=== PATIENT | female | born 1995 | race Caucasian/White ===

== ENCOUNTER 2017-01-14 20:03 | Emergency (ER) | payer OTHER ==
[2017-01-14 20:11] VITALS: BP 134/75; PULSE 72; RESP 18; TEMP 98.9
[2017-01-14] MEDS ORDERED: BUPIVACAINE (PF) 0.5% 30 ML VIAL SQ STA (20:20)
--- NOTE | 2017-01-14 20:25 | ED ---
Lower Extremity Injury HPI - General Chief Complaint: Extremity Injury, Lower Stated Complaint: Toe nail ripped off Time Seen by Provider: 01/14/17 20:16 Source: patient, RN notes reviewed Mode of arrival: ambulatory Limitations: no limitations - History of Present Illness Initial Comments: This is a pleasant 21-year-old female who presents emergency department after catching her left great toenail on the edge of a truck and nearly tearing it off. She states it just occurred a few minutes prior to arrival. Tetanus is up -to-date. Patient is having pain to the area which is exacerbated by any touching or movement. Patient denies any other injuries. Patient denies any history of immunosuppression. Patient does state that she has had a history of left toe surgery. - Related Data Previous Rx's Medication Instructions Recorded Cephalexin [Keflex] 500 mg PO Q6HR #28 cap 01/14/17 Naproxen [Naprosyn] 500 mg PO Q12HR PRN #24 tab 01/14/17 traMADol HCl [Ultram] 50 mg PO Q4H PRN #16 tab 01/14/17 Allergies Allergy/AdvReac Type Severity Reaction Status Date / Time No Known Allergies Allergy Verified 01/14/17 20:10 Review of Systems ROS Statement: Those systems with pertinent positive or pertinent negative responses have been documented in the HPI. ROS Other: All systems not noted in ROS Statement are negative. Past Medical History Past Medical History: No Reported History History of Any Multi-Drug Resistant Organisms: None Reported Past Surgical History: Tonsillectomy Additional Past Surgical History / Comment(s): Surgery involving left great toe by history Past Psychological History: No Psychological Hx Reported Smoking Status: Never smoker Past Alcohol Use History: None Reported Past Drug Use History: None Reported General Exam - General Exam Comments Initial Comments: This is a 21-year-old female presents emergency department no acute distress Limitations: no limitations General appearance: alert, in no apparent distress Head exam: Present: atraumatic, normocephalic, normal inspection Eye exam: Present: normal appearance, EOMI Neck exam: Present: normal inspection Respiratory exam: Present: normal lung sounds bilaterally. Absent: respiratory distress, wheezes, rales, rhonchi, stridor Cardiovascular Exam: Present: regular rate, normal rhythm, normal heart sounds. Absent: systolic murmur, diastolic murmur, rubs, gallop, clicks Extremities exam: Present: normal inspection, tenderness, normal capillary refill, other (Patient has a partial avulsion involving the left great toe nail plate. Initially, is difficult to ascertain the percentage of avulsion due to patient pain. There is no evidence of laceration elsewhere. No evidence of tenderness to the distal phalanx or proximal phalanx. Remainder of the foot and lower extremity is atraumatic. Pedal pulses are 2+. Capillary refills less than 2 seconds). Absent: pedal edema, joint swelling Neurological exam: Present: alert, oriented X3, CN II-XII intact. Absent: motor sensory deficit Psychiatric exam: Present: normal affect, normal mood Skin exam: Present: warm, dry, intact, normal color. Absent: rash, cyanosis, diaphoretic, erythema Course Vital Signs 01/14/17 20:07 Temperature 98.9 F Pulse Rate 72 Respiratory 18 Rate Blood Pressure 134/75 O2 Sat by Pulse 96 Oximetry Procedures - Procedures Initial comment: Patient's left great toe was prepped and draped in sterile fashion. Betadine was used to prep the skin. 3 mL of 0.5% Marcaine was used to provide a digital block. A 27-gauge needle was used. Patient had adequate anesthesia distally. The nail plate was removed easily using hemostats. This was nearly a complete avulsion, greater than 90%. There was notable chronic changes to the nailbed. In fact, the nail plate seems to be non-adhered to the distal aspect of the nailbed itself. This could be due to the patient's previous left great toe injury. There was no significant nail bed laceration. There appears to be no injury to the nail matrix. Nail bed was cleansed thoroughly with normal saline and Betadine. Bacitracin applied. The nail plate itself was cleansed thoroughly and trimmed. Nail plate was used and is a anatomical splint. Sterile dressing applied. Patient tolerated well Medical Decision Making - Medical Decision Making I'm going to place the patient on prophylactic antibiotics due to the fact she was near [facility] when the incident happened. Patient also had a lot of contamination under the distal nail plate itself. Patient cautioned on signs and symptoms of infection. Patient instructed on follow-up. Return and follow- up parameters discussed. - Radiology Data Patient had no bony point tenderness. Patient has full range of motion of the IP joint. Neurovascular status is intact. No x-ray was indicated. There was no evidence of foreign body. Disposition Clinical Impression: Nail avulsion of toe Disposition: HOME SELF-CARE Condition: Good Instructions: Nail Avulsion (ED) Additional Instructions: Call your manager spanish first thing Monday morning for a recheck appointment in 2- 3 days. Wound care as directed. Wash daily with soap and water, apply a thin layer of antibiotic ointment. Keep the wound clean and covered. No submerging and lakes, luis, or rigors. Take the antibiotics as directed.Return to the ER at once if the symptoms worsen or problems or difficulties arise. Prescriptions: Cephalexin [Keflex] 500 mg PO Q6HR #28 cap Naproxen [Naprosyn] 500 mg PO Q12HR PRN #24 tab PRN Reason: Pain traMADol HCl [Ultram] 50 mg PO Q4H PRN #16 tab PRN Reason: Pain Referrals: Rayna Patterson DO [Primary Care Provider] - 1-2 days Time of Disposition: 20:46
== END 2017-01-14 20:52 | disposition home or self-care (01) ==
LOC: EC 20:03
DX: S91.202A Unspecified open wound of left great toe with damage to nail, initial encounter (principal); W22.09XA Striking against other stationary object, initial encounter
CPT/HCPCS: 11730; 99283